=== PATIENT | female | born 1975 | race Caucasian/White ===

== ENCOUNTER 2017-06-24 07:51 | Emergency (ER) | payer BC ==
[~2017-06-24] VITALS: Ht 172.7 cm; Wt 150.2 kg
[~2017-06-24 07:51] MED LIST: ALLERGY SYRING1 EAC3 SL; ALTAVERA1 EACH PO; ENDOCET 5-3251 EACH PO; IBUPROFEN800 MG PO; LUPRON DEPOT11.25 MG IM; SINGULAIR10 MG PO; WOMEN'S DAILY1 EAC1 PO; ZYRTEC10 M3 PO
[2017-06-24] MEDS ORDERED: MONTELUKAST SOD10 MG PO (08:11)
[2017-06-24 08:58] LABS: HEMATOCRIT 38.6 % (36.0-46.0); HEMOGLOBIN 13.6 G/DL (11.9-15.5); MCH 31.1 PG (29.0-34.0); MCHC 35.2 G/DL (30.0-36.0); MCV 88.1 FL (83-99); PLATELET COUNT 274 K/uL (156-360); RBC DIS.WIDTH-CV 12.1 % (11.8-14.6); RBC DIS.WIDTH-SD 39.6 % (39-53); RED BLOOD COUNT 4.38 M/uL (3.80-5.20); WHITE BLOOD COUNT 10.6 K/uL (4.1-10.2)
[2017-06-24 09:06] LABS: ALBUMIN 4.2 g/dL (3.2-4.8); CHLORIDE 107 mEq/L (99-109); POTASSIUM 4.2 mEq/L (3.7-5.4); SODIUM 142 mEq/L (136-147)
[2017-06-24 09:09] LABS: GLUCOSE 113 mg/dL (70-99); TOTAL PROTEIN 7.4 g/dL (6.4-8.3)
[2017-06-24 09:11] LABS: TOTAL BILIRUBIN 1.1 mg/dL (0.0-1.0)
[2017-06-24 09:12] LABS: ALKALINE PHOSPHATASE 135 IU/L (3-129); CREATININE 0.8 mg/dL (0.6-1.3); GFR ESTIMATE (CALCULATED) > 59 mL/min/
[2017-06-24 09:13] LABS: UREA NITROGEN (BUN) 12 mg/dL (9-23)
[2017-06-24 09:14] LABS: AST (GOT) 190 IU/L (2-34)
[2017-06-24 09:15] LABS: ALT (GPT) 117 IU/L (3-49)
[2017-06-24 09:16] LABS: LIPASE 27 U/L (1.0-51.0)
[2017-06-24 09:40] LABS: APPEARANCE CLEAR ((CLEAR)); BILIRUBIN NEGATIVE; BLOOD SMALL; COLOR YELLOW ((YELLOW)); GLUCOSE (STRIP) NEGATIVE; KETONES NEGATIVE; LEUKOCYTES SMALL; NITRITE NEGATIVE; PROTEIN (STRIP) NEGATIVE; SPECIFIC GRAVITY 1.009 (1.000-1.030); UROBILINOGEN 0.2 MG/DL (0.2-1.0)
[2017-06-24 09:51] LABS: BACTERIA RARE /HPF; EPITHELIAL CELLS RARE /HPF; MUCUS TRACE /LPF; WHITE BLOOD CELLS 15-20 /HPF (0-5)
[2017-06-24] MEDS ORDERED: ZOFRAN ODT4 MG PO (09:57)
[2017-06-24] MEDS ORDERED: NORCO 5/3251 TABLET PO (09:57)
[2017-06-24 10:31] VITALS: BP 138/59
== END 2017-06-24 10:32 | disposition home or self-care (01) ==
LOC: EME 07:51
PROVIDERS: Nurse Practitioner Family
DX: R10.11 Right upper quadrant pain (principal); K76.0 Fatty (change of) liver, not elsewhere classified; Z87.442 Personal history of urinary calculi; Z90.710 Acquired absence of both cervix and uterus
CPT/HCPCS: 76705; 80053; 81003; 83690; 85027; 93005; 99281; 99284